=== PATIENT | female | born 1975 | race Caucasian/White ===

== ENCOUNTER 2018-10-29 06:31 | Inpatient (IN) | payer OTHER ==
[2018-10-29] MEDS ORDERED: ceFOXitin 2 GM IVPREMIX* 2 GM/50 ML BAG IVPB ONE (07:00)
[2018-10-29] MEDS ORDERED: Sodium Citrate/Citric Acid* 15 ML UDC ONE (07:17)
[2018-10-29] MEDS ORDERED: Sodium Citrate/Citric Acid* 15 ML UDC PO ONE (07:23)
[2018-10-29] MEDS ORDERED: Buffered Lidocaine 1% SYRIN* 1 ML/SYRINGE INTRADERM ONE (07:23)
[2018-10-29] MEDS ORDERED: Morphine PF AMP (0.5MG/ML)* 5 MG/10 ML AMP ONE (07:31)
[2018-10-29] MEDS ORDERED: OXYTOCIN* 10 UNITS/ML 1 ML VIAL ONE (07:31)
[2018-10-29] MEDS ORDERED: Phenylephrine 40 MCG/ML SYRINGE ONE (07:31)
[2018-10-29] MEDS ORDERED: Lactated Ringers 1000 ML Bag* 1,000 ML IV SCH ×2 (08:00→10:00)
[2018-10-29] MEDS ORDERED: Ondansetron INJ* 2 MG/ML VIAL IV PRN ×2 (08:22→08:23)
[2018-10-29] MEDS ORDERED: Naloxone* 0.4 MG/ML 1 ML VIAL IV PRN ×2 (08:22→08:23)
[2018-10-29] MEDS ORDERED: fentaNYL* 50 MCG/ML 2 ML VIAL (100 MCG VIAL) IV PRN (08:22)
[2018-10-29] MEDS ORDERED: Nalbuphine* 10 MG/ML 1 ML VIAL IV PRN (08:23)
[2018-10-29] MEDS ORDERED: diPHENhydraMINE IV* 50 MG/ML 1 ml VIAL (BENADRYL) IV PRN (08:23)
[2018-10-29] MEDS ORDERED: oxyCODONE/Acetamin 5/325 MG* TAB PO PRN ×4 (08:23→09:58)
[2018-10-29] MEDS ORDERED: Scopolamine 1.5 mg* PATCH TRANSDERM PRN (08:23)
[2018-10-29] MEDS ORDERED: Ondansetron INJ* 2 MG/ML VIAL ONE (08:52)
[2018-10-29] MEDS ORDERED: Acetaminophen TAB* 325 MG PO PRN (09:58)
[2018-10-29] MEDS ORDERED: Witch Hazel PAD* JAR TOPICAL PRN (09:58)
[2018-10-29] MEDS ORDERED: Dibucaine 1% 28.35 GM TUBE PR PRN (09:58)
[2018-10-29] MEDS ORDERED: Ibuprofen TAB* 600 MG PO PRN (09:58)
[2018-10-29] MEDS ORDERED: Glycerin ADULT SUPP PR PRN (09:58)
[2018-10-29] MEDS ORDERED: Oxytocin in LR* 20 UNITS/1,000 ML BAG IVPB SCH (10:00)
[2018-10-29] MEDS: Docusate CAP* 100 MG PO SCH ×2 (13:13→21:26)
[2018-10-29] MEDS: Simethicone TAB* 80 MG TAB.CHEW PO SCH ×3 (13:13→21:15)
[2018-10-29] MEDS: Ketorolac INJ* 30 MG/ML 1 ML VIAL IV PRN ×2 (16:09→22:20)
--- NOTE | 2018-10-29 16:16 | OP ---
OPERATIVE REPORT: DATE OF OPERATION: 10/29/18 DATE OF : 79 SURGEON: Jane Cancino MD. [employer] LEAD TEACHER: Mike Elizondo CNM. ANESTHESIOLOGIST: Dr. Montanez. ANESTHESIA: Spinal. PRE-OP DIAGNOSES: Intrauterine 39-1/7 weeks, desires repeat section, desires permanent sterility. POST-OP DIAGNOSES: Intrauterine 39-1/7 weeks, desires repeat section, desires permanent sterility. Delivered. OPERATIVE PROCEDURES: Repeat low transverse section and bilateral fimbriectomy. URINE OUTPUT: 125 cc of clear yellow urine. IV FLUIDS: 2400 cc of crystalloid. ESTIMATED BLOOD LOSS: 500 cc. FINDINGS: Revealed a vertex male infant, Apgars 9 at 1 minute, 9 at 5 minutes. Weight was 8 pounds 4 ounces. Placenta, 3-vessel cord, manually extracted intact. Normal uterine cavity without evidence of retained membranes or placental tissue. Normal-appearing tubes and ovaries bilaterally. No nuchal cord. No meconium. No evidence of adhesions. COMPLICATIONS: None apparent. DISPOSITION: Stable to recovery room. DESCRIPTION OF PROCEDURE: The patient was placed in dorsal lithotomy position. The abdomen was prepped and draped in a sterile standard fashion. Anesthesia was tested to appropriate level. The patient was identified with the universal protocol for correct position, patient, and procedure. An incision was made through prior incision with scalpel. This was carried down through the fascia. Fascia was scored in the midline and extended laterally and superiorly using Kinney scissors. The fascia was superiorly and inferiorly with blunt and sharp dissection, and the peritoneum was then entered bluntly. Bladder blade was inserted. Lower uterine segment was identified, tented up with an Allis, and incised with a scalpel. This was then extended laterally and superiorly using bandage seizures, amniotomy for clear fluid. Head was delivered No nuchal cord, No meconium noted. Anterior and posterior shoulder delivered. Cord was then milked and clamped after a minute. The was handed off to awaiting shoveler, Dr. Hong. Appropriate cord blood was obtained. The placenta was then manually extracted. The uterus was exteriorized. The uterine cavity was explored and noted to be free of any membranes or placental tissue. The uterine incision itself was reapproximated in 2 layers, first layer running locked, second layer running imbricated. Hemostasis was noted. Attention was then focused to tubal ligation. The patient again verbalized a desire for permanent sterility. The left fallopian tube was approached. First, a Tiffany was placed across the fimbria and distal third of the tube. A ligature suture of 2-0 Vicryl was placed free tie and then suture placed in a Michael fashion. Fimbria and distal third of the tube was then excised. This process was repeated on the right. Both pedicles were noted to be hemostatic. The uterus was returned intraabdominally. Colic gutters were lavaged. Both pedicles were noted to be hemostatic. The hysterotomy site was visualized and noted to be hemostatic. The peritoneum was then reapproximated using 3-0 Vicryl. The subfascial area was hemostatic and the fascia itself was then reapproximated using 0 Vicryl. Subcu was lavaged. Hemostasis was assured and a subcuticular Camper's fascia stitch was placed using 2-0 Vicryl in an interrupted fashion. The skin was then reapproximated with 4-0 Monocryl in a subcuticular fashion. Steris and Mastisol were applied. All sponge, instrument and blade counts were correct throughout the case. The patient tolerated the procedure well and went to recovery room in stable condition. [id number]/[facility] #: [id number] ANGELITO
[2018-10-30] MEDS: Ketorolac INJ* 30 MG/ML 1 ML VIAL IV PRN (04:38)
[2018-10-30 07:05] LABS: Hematocrit 38 % (35-47); Hemoglobin 13.4 g/dL (12.0-16.0); Mean Corpuscular HGB Conc 35 g/dL (31-36); Mean Corpuscular Hemoglobin 33 pg (27-31); Mean Corpuscular Volume 93 fL (80-97); Mean Platelet Volume 9.6 fL (7.4-10.4); Platelet Count 151 10^3/uL (150-450); Red Blood Count 4.08 10^6 /uL (3.70-4.87); Red Cell Distribution Width 13 % (10-15); White Blood Count 12.9 10^3/uL (3.5-10.8)
[2018-10-30 07:09] LABS: ABS Monocytes 1.1 10^3/ul (0-0.8); ABS Neutrophils 10.8 10^3/ul (1.5-7.7); Eosinophil % 0.3 %; Lymphocyte % 7.5 %; Nucleated Red Blood Cells % 0.1
[2018-10-30] MEDS: Simethicone TAB* 80 MG TAB.CHEW PO SCH ×4 (08:41→21:33)
[2018-10-30] MEDS: Docusate CAP* 100 MG PO SCH ×3 (08:41→21:33)
[2018-10-30] MEDS ORDERED: Ferrous Gluconate TAB* 324 MG TAB PO SCH (09:00)
[2018-10-30] MEDS: Ibuprofen TAB* 600 MG PO PRN ×3 (10:12→21:33)
[2018-10-30] MEDS: oxyCODONE/Acetamin 5/325 MG* TAB PO PRN ×3 (13:04→21:27)
[2018-10-30] MEDS ORDERED: RHO D Immune Globulin (HUMAN)* 300 MCG = 1,500 I.U. INJ IM ONE (14:23)
[2018-10-31] MEDS: oxyCODONE/Acetamin 5/325 MG* TAB PO PRN ×3 (01:28→10:58)
[2018-10-31] MEDS: Ibuprofen TAB* 600 MG PO PRN ×2 (05:27→11:55)
[2018-10-31] MEDS: Docusate CAP* 100 MG PO SCH (07:43)
[2018-10-31 08:21] VITALS: BP 141/78
[2018-10-31] MEDS: Simethicone TAB* 80 MG TAB.CHEW PO SCH (08:54)
[2018-11-01] MEDS ORDERED: Scopolamine PATCH Remove* 1 NOTE MISC PATCH OFF PRN (09:02)
== END 2018-10-31 13:25 | disposition home or self-care (01) | DRG 540 ==
LOC: MCHOB 06:31
PROVIDERS: ADMIT Obstetrics & Gynecology; ATTEND Obstetrics & Gynecology
PROC: 0UB70ZZ Excision of Bilateral Fallopian Tubes, Open Approach (ICD-10-PCS; 2018-10-29)
PROC: 4A1HXCZ Monitoring of Products of Conception, Cardiac Rate, External Approach (ICD-10-PCS; 2018-10-29)
PROC: 10D00Z1 Extraction of Products of Conception, Low, Open Approach (ICD-10-PCS; principal; 2018-10-29 07:45)
DX: O34.211 Maternal care for low transverse scar from previous cesarean delivery (principal); O99.824 Streptococcus B carrier state complicating childbirth; Z3A.39 39 weeks gestation of pregnancy; Z37.0 Single live birth; Z30.2 Encounter for sterilization
CPT/HCPCS: 36415; 85025; 85461; 86900; 86901; 88302; A9270-GY; J0694; J1885; J2405; J2590; J2790